=== PATIENT | male | born 2000 | race Caucasian/White ===

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

== ENCOUNTER 2020-04-22 14:01 | Inpatient (IN) ==
[2020-04-22 15:18] LABS: ABS Eosinophils 0.1 10^3/ul (0-0.6); ABS Lymphocytes 1.8 10^3/ul (1.0-4.8); ABS Monocytes 0.9 10^3/ul (0-0.8); Eosinophil % 0.8 %; Hematocrit 46 % (42-52); Lymphocyte % 18.1 %; Mean Corpuscular HGB Conc 35 g/dL (31-36); Mean Corpuscular Hemoglobin 30 pg (27-31); Mean Corpuscular Volume 86 fL (80-94); Mean Platelet Volume 6.9 fL (7.4-10.4); Nucleated Red Blood Cells % 0.1; Platelet Count 307 10^3/uL (150-450); Red Cell Distribution Width 13 % (10-15); White Blood Count 9.7 10^3/uL (3.5-10.8)
[2020-04-22 15:33] LABS: ALT 12 U/L (7-52); AST 17 U/L (13-39); Albumin 5.2 g/dL (3.2-5.2); Albumin/Globulin Ratio 1.6 (1-3); Alkaline Phosphatase 54 U/L (34-104); Anion Gap 10 mmol/L (2-11); BUN/Creatinine Ratio 9.4 (8-20); Blood Urea Nitrogen 8 mg/dL (6-24); CO2 Carbon Dioxide 24 mmol/L (22-32); Calcium 10.2 mg/dL (8.6-10.3); Chloride 103 mmol/L (101-111); EGFR African American 140.5 (>60); EGFR Non-African American 116.1 (>60); Globulin 3.3 g/dL (2-4); Glucose 109 mg/dL (70-100); Potassium 3.6 mmol/L (3.5-5.0); Sodium 137 mmol/L (135-145); Total Protein 8.5 g/dL (6.4-8.9)
[2020-04-22 15:44] LABS: Acetaminophen < 15 mcg/mL; Alcohol, S < 10 mg/dL (<10); Salicylate < 2.50 mg/dL (<30)
[2020-04-22 15:59] LABS: TSH (Thyroid Stimulating Horm) 1.06 mcIU/mL (0.34-5.60)
[2020-04-22] MEDS ORDERED: Al Hydrox/Mg Hydrox/Simet LIQ 30 ML UDC PO PRN (18:11)
[2020-04-22] MEDS ORDERED: chlorproMAZINE TAB* 50 MG Q6H PRN AGITATION PO (18:12)
[2020-04-22] MEDS ORDERED: Nicotine GUM 2MG FRUIT FLAVOR PO PRN (19:00)
[2020-04-23 09:53] LABS: Urine Appearance Cloudy; Urine Bilirubin Negative (Negative); Urine Blood Negative (Negative); Urine Color Amber; Urine Glucose Negative (Negative); Urine Ketones Trace (Negative); Urine Nitrite Negative (Negative); Urine Protein 1+(30 mg/dL) (Negative); Urine Urobilinogen Negative (Negative)
[2020-04-23 09:55] LABS: Urine Bacteria Absent (Absent); Urine Benzodiazepine Screen None Detected (None Detect); Urine Opiates Screen None Detected (None Detect); Urine Red Blood Cell Absent (Absent); Urine White Blood Cell Absent (Absent)
[2020-04-23] MEDS: Vitamin THERAPEUTIC TAB PO SCH (12:29)
[2020-04-24] MEDS: Vitamin THERAPEUTIC TAB PO SCH (08:36)
[2020-04-24 09:11] VITALS: BP 129/84
[2020-04-24 12:02] LABS: Cholesterol 115 mg/dL; HDL Cholesterol 53.6 mg/dL; LDL Cholesterol 53 mg/dL; Triglycerides 40 mg/dL
== END 2020-04-24 12:40 | disposition home or self-care (01) | DRG 776 ==
LOC: ED 14:01 → BSU 16:46
PROVIDERS: ADMIT Psychiatry & Neurology Addiction Psychiatry; ATTEND Psychiatry & Neurology Psychiatry